=== PATIENT | male | born 1990 | race American Indian/Alaskan Native ===

== ENCOUNTER 2017-09-08 10:23 | Emergency (ER) | payer SELFPAY ==
--- NOTE | 2017-09-08 11:47 | Emergency Department Report ---
ED Rash HPI - HPI Chief Complaint: Skin Rash Stated Complaint: HAND BREAK OUT Time Seen by Provider: 09/08/17 11:15 Duration: 3 Days Location: Upper Extremities Suspected Cause: Unknown Rash Symptoms: Yes Itching, Yes Peeling, No Facial Swelling, No Tongue/Oral Swelling, No Breathing Difficulties, No Choking Sensation, No Wheezing/Dyspnea, No Blistering, No Fever, No Lightheaded, No Malaise, No Myalgias Severity: mild Other History: This is a 27-year-old male nontoxic, well nourished in appearance , no acute signs of distress presents to the ED with c/o of scaly rash to left digits and palm of hand x3 days. Patient denies any pus, drainage, fever, chills, nausea, vomiting, chest and short of breath. Patient denies any rash to webs of finger. Denies any sexual activities. Denies any allergies or significant past medical history. ED Review of Systems ROS: Stated complaint: HAND BREAK OUT Other details as noted in HPI Constitutional: denies: chills, fever Eyes: denies: eye pain, eye discharge, vision change ENT: denies: ear pain, throat pain Respiratory: denies: cough, shortness of breath, wheezing Cardiovascular: denies: chest pain, palpitations Endocrine: no symptoms reported Gastrointestinal: denies: abdominal pain, nausea, diarrhea Genitourinary: denies: urgency, dysuria Musculoskeletal: denies: back pain, joint swelling, arthralgia Skin: rash. denies: lesions Neurological: denies: headache, weakness, paresthesias Psychiatric: denies: anxiety, depression Hematological/Lymphatic: denies: easy bleeding, easy bruising ED Past Medical Hx - Past Medical History Previous Medical History?: No - Surgical History Past Surgical History?: No - Social History Smoking Status: Current Every Day Smoker Substance Use Type: Alcohol - Medications Home Medications: Home Medications Medication Instructions Recorded Confirmed Last Taken Type Penicillin Vk [Veetids TAB] 250 mg PO QID #40 tablet 10/09/13 Unknown Rx Clotrimazole 1% [Lotrimin 1%] 1 applic TP BID #1 tube 09/08/17 Unknown Rx Rash Exam - Exam General: Vital signs noted. No distress. Alert and acting appropriately. HEENT: No Periorbital Edema, No Conjuctival Injection, No Chemosis, No Perioral Edema, No Tongue Edema, No Uvular Edema, No Compromised Airway, No Drooling Lungs: Yes Good Air Exchange (Normal Breath Sounds), No Wheezes, No Ronchi, No Stridor, No Cough, No Labored Respirations, No Retractions, No Use of Accessory Muscles, No Other Abnormal Lung Sounds Heart: Yes Regular, No Murmur Skin: Yes Erythema, Yes Encrustations, Yes Other ( pruritic erythematouswith scales to fingers and palms ), No Urticarial Rash, No Maculopapular Rash, No Morbilliform rash, No Bulla(e), No Excoriations, No Weeping, No Tenderness, No Edema Other: Positive: Abdomen Normal, Neurologic Normal, Musculoskeletal Normal ED Course Vital Signs 09/08/17 10:42 Temperature 98.1 F Pulse Rate 69 Blood Pressure 135/89 O2 Sat by Pulse 100 Oximetry - Reevaluation(s) Reevaluation #1: 09/08/17 11:59 Patient is speaking in full sentences with no signs of distress noted. ED Medical Decision Making - Medical Decision Making This is a 27-year-old male that presents with Tinea manuum. Patient is stable and was examined by me. There is no signs of rash in the webs of fingers. No signs of syphilis. Patient is discharged with Clotrimazole and was instructed to followup with PCP or hot walker if symptoms worsen. No signs of cellulites or pus or drainage. At time of discharge, the patient does not seem toxic or ill in appearance. No acute signs of distress noted. Patient agrees to discharge treatment plan of care. No further questions noted by the patient. Critical care attestation.: If time is entered above; I have spent that time in minutes in the direct care of this critically ill patient, excluding procedure time. ED Disposition Clinical Impression: Tinea manuum Disposition: DC-01 TO HOME OR SELFCARE Is pt being admited?: No Does the pt Need Aspirin: No Condition: Stable Instructions: Tinea Corporis (ED), Betamethasone/Clotrimazole (On the skin) Additional Instructions: Follow-up with a primary care doctor in 3-5 days or if symptoms worsen and continue return to emergency room as soon as possible. Prescriptions: Clotrimazole 1% [Lotrimin 1%] 1 applic TP BID #1 tube Referrals: PRIMARY CARE, [Primary Care Provider] - 3-5 Days MELISA HERRERA MD [Staff Physician] - 3-5 Days [facility] [Outside] - 3-5 Days [facility] [Outside] - 3-5 Days Forms: Work/School Release Form(ED)
[2017-09-08 12:21] VITALS: BP 130/87
== END 2017-09-08 12:20 | disposition home or self-care (01) ==
LOC: ED 10:23
DX: B35.2 Tinea manuum (principal); F17.200 Nicotine dependence, unspecified, uncomplicated
CPT/HCPCS: 99282